=== PATIENT | male | born 1940 | race Caucasian/White ===

== ENCOUNTER 2023-03-22 14:56 | Emergency (ER) | payer MEDICARE, SELFPAY ==
[2023-03-22 15:04] VITALS: BP 128/83
--- NOTE | 2023-03-22 16:59 | ED.GENMED ---
History of Present Illness
General
Chief Complaint: Skin Problem
Time Seen by Provider: 03/22/23 16:33
Travel History
Have you had any contact with someone who has COVID-19?: No
Do you have any symptoms of coronavirus? Fever > 100 degrees, chills, cough, shortness of breath, sore throat, loss of taste or smell, muscle aches, or headache?: No
History of Present Illness
History of Present Illness:
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
5 days ago. He states the abrasions continue to bleed. He denies any other complaints however is noted in triage to have a heart rate in the 130s
Past History
Past History
ED Past Medical History: Arrthythmia, HTN, Hypercholesterolemia and Other
ED Past Surgical History: Orthopedic (Arthroscopy of the right knee)
Social History
Personal: Single
Living: alone
Employment: Retired
Review of Systems
Review of Systems
Allergies reviewed?: Yes
All Other Systems: ROS reviewed and negative except as documented in HPI and ROS
Phy Exam
Physical Exam
Physical Exam:
GEN: Well appearing, NAD, WDWN
HEENT: Oral mucosa moist, no scleral icterus
Cardiac: Rapid rate, regular
Lung: No respiratory distress, no tachypnea
MSK: No gross deformity or injuries
Skin: Good color, no pallor or jaundice, no rashes. Healing superficial wounds to the left thumb as well as the left third digit, no active bleeding
Neuro: AO x3, moves all extremities freely
Psych: Calm, cooperative
Course
Orders/Labs/Results
Orders:
Orders
03/22/23 17:09
Electrocardiogram (*1) Urgent
Reason for Study: Atrial Flutter
EKG- Treatment ONCE
03/22/23 17:17
Complete Blood Count/With Diff Urgent
Comprehensive Metabolic Panel Urgent
03/22/23 17:40
0.9% Sodium Chloride 500 ml [Nss] 500 ml IV BOLUS
Diltiazem HCl [Cardizem] 25 mg IV NOW STA
03/22/23 18:02
Electrocardiogram (*1) Urgent
Reason for Study: Tachycardia
EKG- Treatment ONCE
03/22/23 19:17
Diltiazem Extended Release [Cardizem Cd] 120 mg PO NOW STA
Abnormal Lab Results
03/22/23
17:17
RBC 4.26 L 10^6/uL
(4.70-6.10)
Hgb 12.7 L g/dL
(13.0-18.0)
Hct 37.3 L %
(39.0-52.0)
Glucose 102 H mg/dl
(70-99)
03/22/23 17:17
03/22/23 17:17
Vital Signs
Initial and Last Documented VS:
Initial Vital Signs
Temp Pulse Resp BP Pulse Ox
97.6 F 138 18 128/83 96
03/22/23 15:04 03/22/23 15:04 03/22/23 15:04 03/22/23 15:04 03/22/23 15:04
Last Documented Vital Signs
Temp Pulse Resp BP Pulse Ox
97.6 F 85 20 117/69 97
03/22/23 15:04 03/22/23 20:15 03/22/23 20:15 03/22/23 20:04 03/22/23 20:15
MDM/Problems Addressed
MDM/Problems Addressed:
Patient presented with concerns for wounds to the fingers however he was noted to be in rapid atrial flutter in the 130s to 140s. Heart rate was controlled with IV diltiazem he remained controlled. I discussed his situation with cardiology given
the similar events from his last ER visit, at this time because he is maxed on metoprolol cardiology advised us to add sustained-release diltiazem at a dose of 120 twice daily. The patient was observed in the emergency department after
administration with no hypotension or recurrent tachycardia. We discharged on Cardizem and advised to follow-up as an outpatient for further medication therapy and adjustments as needed
Comment
Comment:
Initial EKG independently interpreted by me at 1724 shows a slightly wide-complex tachycardia at a rate of 136 most likely indicative of a rapid atrial fibrillation 2:1
Repeat EKG independently interpreted by me at 1807 shows atrial flutter at a rate of 68 with 4:1 conduction, QTc of 438
*Critical Care Note
Total Time (30-74mins, 75-104mins- exclusive of procedures): Not Applicable
Update Note
Update Note:
1800: pt HR improved to 60s, looks like sinus, will repeat EKG
ED Attending Note
-
Portions of this chart may have been created with voice recognition software.� Occasional wrong word or��sound alike� substitutions may have occurred due to the inherent limitations of voice recognition software.
Discharge Plan
Departure
Patient Disposition: Home (Routine Discharge)
Date of Disposition: 03/22/23
Time of Disposition: 20:29
Patient with high blood pressure during this ER visit?: No
Discharge Problem:
Abrasion of left thumb, subsequent encounter, Atrial flutter with rapid ventricular response
Instructions: Wound Care (DC)
Prescriptions:
New
diltiazem HCl 120 mg capsule,extended release 12 hr
120 mg PO BID Qty: 60 0RF
No Action
multivitamin Tablet
1 tab PO DAILY
Eliquis 5 mg Tablet
5 mg PO BID
furosemide 40 mg Tablet
40 mg PO DAILY
potassium chloride 20 mEq Tablet Extended Release
20 meq PO DAILY
metoprolol succinate [Toprol XL] 100 mg Tablet Extended Release 24 Hr
100 mg PO BID
Serene Sleep
1 cap PO HS
Patient Comments:
BlaQmax� black cuminFlavioa extract, (root and leaf) [std. to 35% withanolide glycosides], gelatin, glycerin, sunflower oil, purified water, beeswax, sunflower lecithin, carob color.
Referrals:
Presley Jackson MD [Active] - Call in 1-3 days for appt
Jorge Madison MD [Family Provider] -
Activity Restrictions/Additional Instructions:
Change the bandage each day and gently wash with soap and water
We are starting you on a new medication to control your heart rate called diltiazem. You will take this twice a day in addition to your current metformin. If you develop dizziness or lightheadedness while taking this please follow-up closely with
your platform inspector to discuss further medication therapies
If you feel chest pain or shortness of breath despite these meds please return to the emergency department
Interventions
Interventions:
*Risk Screen - Suicide Last Done: 03/22/23 17:32
*General Assessment Last Done: 03/22/23 17:32
*Neglect/Abuse Screening Last Done: 03/22/23 17:32
ED- Fall Risk Assessment Last Done: 03/22/23 17:32
*ED COVID-19 Vaccine History Last Done: 03/22/23 17:32
ED-Skin Assessment Last Done: 03/22/23 16:52
[2023-03-22 17:29] LABS: % Basophils 0.4 % (0-2); % Eosinophils 1.5 % (0-6); % Immature Granulocytes 0.4 % (0-0.5); % Lymphocytes 23.2 % (20.5-51.1); % Monocytes 8.6 % (1.7-9.3); % Neutrophils 65.9 % (42.2-75.2); Absolute Eosinophils 0.1 10^3/uL (0-0.7); Absolute Lymphocytes 1.2 10^3/uL (1.2-3.4); Absolute Monocytes 0.5 10^3/uL (0.1-0.6); Absolute Neutrophils 3.5 10^3/uL (1.4-6.5); Hematocrit 37.3 % (39.0-52.0); Hemoglobin 12.7 g/dL (13.0-18.0); Mean Corpuscular Hgb 29.8 pg (27.0-31.0); Mean Corpuscular Volume 87.6 fL (80.0-94.0); Mean Platelet Volume 9.1 fL (7.4-10.4); Nucleated Red Blood Cells % 0 % (-); Platelet Count 208 10^3/uL (130-400); Red Blood Cell Count 4.26 10^6/uL (4.70-6.10); Red Cell Dist. Width 12.9 % (11.5-14.5); White Blood Cell Count 5.3 10^3/uL (4.8-10.8)
[2023-03-22 17:34] VITALS: BMI 32.8
[2023-03-22] MEDS: CARDIZEM 25 MG IV (17:43)
[2023-03-22 17:47] LABS: ALT (SGPT) 21 U/L (0-50); AST (SGOT) 34 U/L (17-59); Albumin 3.9 g/dl (3.5-5.0); Alkaline Phosphatase 63 U/L (38-126); Blood Urea Nitrogen 19 mg/dl (9-20); Calcium 9.2 mg/dl (8.4-10.2); Carbon Dioxide 25 mmol/L (22-30); Chloride 103 mmol/L (98-107); Estimated Creatinine Clearance 74 ml/min; Glucose 102 mg/dl (70-99); Potassium 3.7 mmol/L (3.5-5.1); Sodium 137 mmol/L (135-145); Total Bilirubin 0.9 mg/dl (0.2-1.3); Total Protein 6.5 g/dl (6.3-8.2); eGFR > 60.00
[2023-03-22] MEDS: NSS 500 IV (17:47)
[2023-03-22 18:00] VITALS: BP 107/70
[2023-03-22 19:00] VITALS: BP 110/75
[2023-03-22 20:00] VITALS: BP 117/69
[2023-03-22] MEDS: CARDIZEM CD 120 MG PO (20:04)
[2023-03-22 20:37] VITALS: BP 121/72
[2023-03-22 21:00] VITALS: BP 126/71
== END 2023-03-22 21:06 | disposition home or self-care (01) ==
LOC: EMR 14:56
PROVIDERS: Physician Assistant; EMERGENCY PHYSICIAN Emergency Medicine; FAMILY PHYSICIAN Internal Medicine
DX: I48.92 Unspecified atrial flutter (principal); S60.312D Abrasion of left thumb, subsequent encounter; W19.XXXD Unspecified fall, subsequent encounter; Z95.0 Presence of cardiac pacemaker
CPT/HCPCS: 99284; 96374; 96361; 80053; 85025; 93005